=== PATIENT | male | born 1985 | race Two or more races ===

== ENCOUNTER 2018-11-27 09:41 | Emergency (ER) | payer SELFPAY ==
[~2018-11-27] VITALS: Wt 62.0 kg
[2018-11-27 09:44] VITALS: RESP 18
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
[2018-11-27] MEDS ORDERED: IBUP-1561 PO (11:25)
[2018-11-27] MEDS ORDERED: ACET325T45 PO (11:25)
[2018-11-27] MEDS ORDERED: BACL10TA PO (11:25)
[2018-11-27] MEDS ORDERED: ACETAMINOPHEN 325 MG TAB PO ONE (11:30)
[2018-11-27] MEDS ORDERED: IBUPROFEN 200 MG TAB PO ONE (11:30)
[2018-11-27 11:35] VITALS: BP 134/67; PULSE 72
== END 2018-11-27 12:01 | disposition home or self-care (01) ==
LOC: FTE 09:41
DX: M62.830 Muscle spasm of back (principal); F17.210 Nicotine dependence, cigarettes, uncomplicated
CPT/HCPCS: 99283